=== PATIENT | female | born 1970 | race Hispanic/Latino ===

== ENCOUNTER 2019-09-26 10:39 | Emergency (ER) | payer OTHER ==
[2019-09-26 10:52] VITALS: BP 104/65
[2019-09-26] MEDS ORDERED: ONDANSETRON 4 MG/2 ML INJ IM ONE (11:03)
--- NOTE | 2019-09-26 11:03 | Event Note ---
ED Screening Note ED Screening Note: tripped over furniture at 3:30 AM this morning hit her head and face ecchymosis present to the face states she has a knot present to the back of the head headache, nausea, had a episode of comiting c/o left shoulder pain and headache she is unsure of LOC states she has an abrasion to the chin PMHx none no allergies to meds unsure last tetanus immunization
[2019-09-26] MEDS ORDERED: DIPHtheria,PERTUSSIS(ACELL),TETANUS VACCINE/PF 0.5 ML VIAL IM ONE (11:04)
[2019-09-26] MEDS ORDERED: NEOMY 3.5 MG/BACIT 400 UNITS/POLY B 5000 UNITS/GM OINT PACKET TP ONE (11:04)
[2019-09-26] MEDS ORDERED: BUTALB/ACETAMINOPHEN/CAFFEINE TAB PO ONE (11:07)
--- NOTE | 2019-09-26 13:03 | Emergency Department Report ---
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 Unsure if she passed out on the first follow-up when she got into the bed she did notice that she felt some bruising and or what she thought was bleeding to her chin. She again got out of bed to go to the bathroom to see at this area and upon leaving the bathroom she just recalls waking up on the floor. Complaint: fall -: Sudden, Last night Fall Witnessed: no Loss of Consciousness: none Prolonged Down Time?: no Symptoms Prior to Fall: none Location - Extremities: Left: Shoulder (Also has pain to the left shoulder with range of motion which was sustained after the fall) Severity: mild, moderate Context: tripped/slipped Associated Symptoms: headache. denies: shortness of breath, abdominal pain - Related Data Previous Rx's Medication Instructions Recorded Last Taken Type Butalb/Acetaminophen/Caffeine 1 cap PO Q8HR PRN #20 cap 09/26/19 Unknown Rx [Fioricet 50-300-40 mg CAP] Ondansetron [Zofran ODT TAB] 8 mg PO Q8HR #20 tab.rapdis 09/26/19 Unknown Rx Allergies Allergy/AdvReac Type Severity Reaction Status Date / Time No Known Allergies Allergy Unverified 09/26/19 10:47 ED Review of Systems ROS: Stated complaint: FELL HIT HEAD AT WORK Other details as noted in HPI Comment: All other systems reviewed and negative ED Past Medical Hx - Past Medical History Previous Medical History?: No - Surgical History Past Surgical History?: No - Social History Smoking Status: Never Smoker Substance Use Type: None - Medications Home Medications: Home Medications Medication Instructions Recorded Confirmed Last Taken Type Butalb/Acetaminophen/Caffeine 1 cap PO Q8HR PRN #20 cap 09/26/19 Unknown Rx [Fioricet 50-300-40 mg CAP] Ondansetron [Zofran ODT TAB] 8 mg PO Q8HR #20 tab.rapdis 09/26/19 Unknown Rx ED Physical Exam - General Limitations: No Limitations General appearance: alert, in no apparent distress - Head Head exam: Present: normocephalic - Expanded Head Exam Expanded Head exam: Present: abrasion, contusion 1 - Abrasion swelling 2 - Contusion swelling 3 - Contusion 4 - Contusion 5 - Superficial abrasion to this region - Eye Eye exam: Present: normal appearance. Absent: nystagmus Pupils: Present: normal accommodation. Absent: unequal, miosis - ENT ENT exam: Present: mucous membranes moist, other (No intraoral trauma was visualized) - Neck Neck exam: Present: normal inspection, full ROM. Absent: tenderness, lymphadenopathy, thyromegaly - Respiratory Respiratory exam: Present: normal lung sounds bilaterally. Absent: respiratory distress, wheezes, rales, rhonchi, chest wall tenderness, accessory muscle use - Cardiovascular Cardiovascular Exam: Present: regular rate, normal rhythm. Absent: systolic murmur, diastolic murmur, rubs, gallop - GI/Abdominal GI/Abdominal exam: Present: soft, normal bowel sounds. Absent: distended, tenderness, hyperactive bowel sounds, hypoactive bowel sounds, organomegaly, mass - Extremities Exam Extremities exam: Present: normal inspection - Back Exam Back exam: Present: normal inspection - Neurological Exam Neurological exam: Present: alert, oriented X3 - Psychiatric Psychiatric exam: Present: normal affect, normal mood - Skin Skin exam: Present: warm, dry, intact, normal color. Absent: rash ED Course Vital Signs 09/26/19 09/26/19 10:51 11:59 Temperature 97.9 F Pulse Rate 71 Respiratory 18 18 Rate Blood Pressure 104/65 [Left] O2 Sat by Pulse 100 Oximetry ED Medical Decision Making - Radiology Data Radiology results: report reviewed [facility] [address] [place] [address] Cat Scan Report Signed Patient: JAMIR DAMON MR#: [id number] : 1970 Acct:[id number] Age/Sex: 49 / F ADM Date: 09/26/19 Loc: ED Attending Dr: Ordering Physician: TODD TERRAZAS Date of Service: 09/26/19 Procedure(s): CT head/brain wo con Accession Number(s): [id number] cc: TODD TERRAZAS NONENHANCED CT SCAN OF THE HEAD: INDICATION / CLINICAL INFORMATION: 49 years Female; fall, possible LOC, headache, n/v. TECHNIQUE: Routine CT head without contrast. All CT scans at this location are performed using CT dose reduction for ALARA by means of automated exposure control. COMPARISON: None. FINDINGS: BRAIN / INTRACRANIAL CONTENTS: No intracranial sequela from the trauma. No scalp hematoma; no air- fluid level in the visualized portions of the paranasal sinuses. No acute hemorrhage, mass effect, midline shift, hydrocephalus, or acute, large territorial infarct. No chronic infarct or focal atrophy. Normal brain volume and ventricular/sulcal size for age. No significant white matter abnormality. CRANIOCERVICAL JUNCTION: No significant abnormality. ORBITS: No significant abnormality of visualized orbits. SINUSES / MASTOIDS: No significant abnormality of the visualized paranasal sinuses or mastoid air cells. ADDITIONAL FINDINGS: None. IMPRESSION: No intracranial sequela from the trauma. Signer Name: Simran Chavez MD Signed: 09/26/2019 1:08 PM Workstation Name: [id number] Transcribed By: BS Dictated By: Simran Varner MD Electronically Authenticated By: Simran Varner MD Signed Date/Time: 09/26/19 1308 DD/ 1306 TD/TT:[facility] [address] [place] [address] Cat Scan Report Signed Patient: JAMIR DAMON MR#: [id number] : 1970 Acct:[id number] Age/Sex: 49 / F ADM Date: 09/26/19 Loc: ED Attending Dr: Ordering Physician: TODD GALEANO Date of Service: 09/26/19 Procedure(s): CT facial bones wo con Accession Number(s): [id number] cc: TODD GALEANO CT FACE HISTORY: Head trauma; left orbital region COMPARISON: None. TECHNIQUE: Axial images of the face were obtained. Sagittal and coronal reformats were generated. All CT scans at this location are performed using CT dose reduction for ALARA by means of automated exposure control. CONTRAST: None. FINDINGS: Facial bones: Midface: Nasal bones, perpendicular plate of ethmoid are normal. No soft tissue swelling is seen around the nasal septal cartilage. Medial orbital wall is normal. Bony orbit: Inferior orbital rim, floor of the orbit and the medial wall are normal. Diaphragmatic: Maxillary complex: Normal; zygomatic arches are normal Mandible: No fracture; dental caries sinuses 19; increased is CT attenuation seen due to chronic osteitis Paranasal sinuses: Retention cyst in the inferior right maxillary sinus Additional findings: None. IMPRESSION: No fracture in the facial bones Signer Name: Simran Chavez MD Signed: 09/26/2019 1:06 PM Workstation Name: [id number] Transcribed By: LAY Dictated By: Simran Varner MD Electronically Authenticated By: Simran Varner MD Signed Date/Time: 09/26/19 1306 [facility] [address] [place] [address] XRay Report Signed Patient: JAMIR DAMON MR#: [id number] : 1970 Acct:[id number] Age/Sex: 49 / F ADM Date: 09/26/19 Loc: ED Attending Dr: Ordering Physician: TODD GALEANO Date of Service: 09/26/19 Procedure(s): XR shoulder 2+V LT Accession Number(s): [id number] cc: TODD GALEANO Fluoro Time In Minutes: Left shoulder-3 views INDICATION: MAIN: head/left shoulder pain post fall/ trauma. COMPARISON: None. IMPRESSION: No acute osseous or soft tissue abnormality. No significant DJD. Signer Name: Alexander Prieto MD Signed: 09/26/2019 1:33 PM Workstation Name: [id number] Transcribed By: MARCELLA Dictated By: Alexander Prieto MD Electronically Authenticated By: Alexander Prieto MD Signed Date/Time: 09/26/19 1333 DD/ 1332 TD/TT: - Medical Decision Making Current Jimmy coma scale 15. Does have multiple facial contusions and 1 contusion to the left portion of the head. No skull crepitance or stepoff. There was mild Cohen sign to left ear . No raccoon eyes. No fluid from nose or ears. No nasal septal hematoma. No open wounds. No cervical spine tenderness. CT scan performed to evaluate for any intracranial injury or skull fracture and was normal . Patient is protecting airway and otherwise has an unremarkable secondary trauma survey. Given instructions regarding supportive care including pain meds as needed, return precautions, follow-up with primary physician. Critical care attestation.: If time is entered above; I have spent that time in minutes in the direct care o f this critically ill patient, excluding procedure time. ED Disposition Clinical Impression: Head injury due to trauma, Facial contusion, Headache, Concussion Disposition: - TO HOME OR SELFCARE Is pt being admited?: No Does the pt Need Aspirin: No Condition: Stable Instructions: Post Concussion Syndrome (ED), Minor Head Injury (ED), Concussion (ED) Additional Instructions: Please be sure to follow-up with your primary care doctor in [facility] as we discussed Prescriptions: Butalb/Acetaminophen/Caffeine [Fioricet 50-300-40 mg CAP] 1 cap PO Q8HR PRN #20 cap PRN Reason: Headache Ondansetron [Zofran ODT TAB] 8 mg PO Q8HR #20 tab.rapdis Referrals: PRIMARY CARE, [Primary Care Provider] - 2-3 Days (Please follow-up for reevaluation for primary care within 48 hours refrain from any strenuous activity or any 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 It is not recommended that you travel to [place] on this Friday and please await to be cleared before your potential flight to [place] in 1 week) Forms: Work/School Release Form(ED)
--- NOTE | 2019-09-26 13:11 | Cat Scan Report ---
CT FACE HISTORY: Head trauma; left orbital region COMPARISON: None. TECHNIQUE: Axial images of the face were obtained. Sagittal and coronal reformats were generated. All CT scans at this location are performed using CT dose reduction for ALARA by means of automated expo sure control. CONTRAST: None. FINDINGS: Facial bones: Midface: Nasal bones, perpendicular plate of ethmoid are normal. No soft tissue swelling is seen around t he nasal septal cartilage. Medial orbital wall is normal. Bony orbit: Inferior orbital rim, floor of the orbit and the medial wall are normal. Diaphragmatic: Maxillary complex: Normal; zygomatic arches are normal Mandible: No fracture; dental caries sinuses 19; increased is CT attenuation seen due to chronic oste itis Paranasal sinuses: Retention cyst in the inferior right maxillary sinus Additional findings: None. IMPRESSION: No fracture in the facial bones Signer Name: Simran Chavez MD Signed: 09/26/2019 1:06 PM Workstation Name: [id number]
--- NOTE | 2019-09-26 13:13 | Cat Scan Report ---
NONENHANCED CT SCAN OF THE HEAD: INDICATION / CLINICAL INFORMATION: 49 years Female; fall, possible LOC, headache, n/v. TECHNIQUE: Routine CT head without contrast. All CT scans at this location are performed using CT dos e reduction for ALARA by means of automated exposure control. COMPARISON: None. FINDINGS: BRAIN / INTRACRANIAL CONTENTS: No intracranial sequela from the trauma. No scalp hematoma; no air-flu id level in the visualized portions of the paranasal sinuses. No acute hemorrhage, mass effect, midline shift, hydrocephalus, or acute, large territorial infarct. No chronic infarct or focal atrophy. Normal brain volume and ventricular/sulcal size for age. No sig nificant white matter abnormality. CRANIOCERVICAL JUNCTION: No significant abnormality. ORBITS: No significant abnormality of visualized orbits. SINUSES / MASTOIDS: No significant abnormality of the visualized paranasal sinuses or mastoid air padmini ls. ADDITIONAL FINDINGS: None. IMPRESSION: No intracranial sequela from the trauma. Signer Name: Simran Chavez MD Signed: 09/26/2019 1:08 PM Workstation Name: [id number]
--- NOTE | 2019-09-26 13:37 | XRay Report ---
Left shoulder-3 views INDICATION: MAIN: head/left shoulder pain post fall/ trauma. COMPARISON: None. IMPRESSION: No acute osseous or soft tissue abnormality. No significant DJD. Signer Name: Alexander Prieto MD Signed: 09/26/2019 1:33 PM Workstation Name: [id number]
== END 2019-09-26 15:01 | disposition home or self-care (01) ==
LOC: ED 10:39
DX: S06.0X0A Concussion without loss of consciousness, initial encounter (principal); S00.83XA Contusion of other part of head, initial encounter; Z79.899 Other long term (current) drug therapy; W01.10XA Fall on same level from slipping, tripping and stumbling with subsequent striking against unspecified object, initial encounter; Y93.89 Activity, other specified; Y92.89 Other specified places as the place of occurrence of the external cause; Y99.8 Other external cause status
CPT/HCPCS: 70450; 70486; 73030; 90471; 90715; 96372; 99284; J2405; A6250